=== PATIENT | male | born 1975 | race Caucasian/White ===

== ENCOUNTER → 2016-10-11 | Outpatient (CLI) | payer BC ==
--- NOTE | 2016-10-11 10:03 | DIAGNOSTIC IMAGING REPORT ---
MRI LUMBAR SPINE W/O CONTRAST CLINICAL HISTORY: Low back pain. Lumbar radiculopathy. TECHNIQUE: Sagittal and axial T1, T2 and STIR images were obtained. COMPARISON STUDY: No previous studies for comparison. OBSERVATIONS: The vertebral bodies and posterior elements appear intact. There is no abnormal bony signal present to suggest a marrow replacement process. L1-2: There is a circumferential disc bulge/protrusion minimally asymmetric to the left. There is minor spinal canal narrowing. There is no significant foraminal stenosis. L2-3: There is a mild circumferential disc bulge. There is no significant spinal or foraminal stenosis. L3-4: There is an annular fissure. There is a mild circumferential disc bulge/protrusion slightly asymmetric to the right. There is minimal spinal canal narrowing. There is no significant foraminal stenosis. L4-5: There is a tiny broad-based right paracentral disc protrusion. There is minimal flattening the anterior aspect the thecal sac. There is no significant spinal or foraminal stenosis. L5-S1: No disc protrusions or extrusions. No evidence of spinal canal or neural foraminal compromise. The conus medullaris and cauda equina appear normal. IMPRESSION: Mild multilevel spondylitic changes as described above. Tiny right paracentral disc protrusion at the L4-5 level. Asymmetric disc bulge/protrusion at the L3-4 level on the right. Asymmetric disc bulge/protrusion at the L1-2 level on the left. At no level is there evidence for moderate or severe spinal or foraminal stenosis. Electronically signed by: Winston Grossman M.D. 10/11/2016 10:02 AM Dictated Date/Time: 10/11/2016 9:57 AM
== END | disposition home or self-care (01) ==
LOC: C.MRI 08:46
PROVIDERS: ATTEND Family Medicine
DX: M51.36 Other intervertebral disc degeneration, lumbar region (principal); M54.16 Radiculopathy, lumbar region; M54.32 Sciatica, left side